=== PATIENT | female | born 1960 | race Caucasian/White ===

== ENCOUNTER → 2017-01-10 | Outpatient (CLI) | payer OTHER ==
[~2017-01-10] MED LIST: GASTROGRAFIN SOLUTION 30ML (Q9963) As Ordered ONE; LIQUID POLIBAR PLUS 105% w/v 1900ML BTL As Ordered ONE
--- NOTE | 2017-01-10 13:20 | REP ---
GASTROGRAFIN ENEMA: The procedure was performed by MILAGRO Coffman under the direct supervision of Dr. Wilde. All imaging was reviewed with Dr. Wilde prior to dictation. The auditor internal film showed no organomegaly or pathological masses. Granulomatous calcifications are seen within the spleen. Gastrografin at a 50/50 dilution with water was infused into the patient's colon via a rectal tip. Imaging during the procedure revealed small diverticula within the sigmoid colon and the distal left colon. Gastrografin was able to be infused all the way through the terminal ileum. The terminal ileum was visualized and appeared normal. The appendix was also visualized on this exam and appeared within normal limits. IMPRESSION: Small sigmoid and left colon diverticula. Other than that unremarkable Gastrografin enema examination. Fluoroscopy time was 1 minute and 2 seconds. Reviewed by MILAGRO Funes 01/10/2017 03:48 PEdited and Signed by Nelson Wilde MD 01/10/2017 06:46 P
== END ==
LOC: M RAD 10:52
PROVIDERS: ATTEND Surgery
DX: R10.84 Generalized abdominal pain (principal); R93.3 Abnormal findings on diagnostic imaging of other parts of digestive tract; K57.30 Diverticulosis of large intestine without perforation or abscess without bleeding
CPT/HCPCS: 74270; Q9963

== ENCOUNTER → 2018-03-17 | Outpatient (REF) | payer OTHER ==
[2018-03-22 14:49] LABS: HPV HYBRID CAPTURE II Negative (Negative)
== END ==
LOC: M SFHCWAGY 15:56
DX: Z12.4 Encounter for screening for malignant neoplasm of cervix (principal); N95.2 Postmenopausal atrophic vaginitis
CPT/HCPCS: G0123

== ENCOUNTER 2019-03-30 06:58 | Day surgery (SDC) | payer OTHER ==
[~2019-03-30] VITALS: Ht 160 cm; Wt 110.7 kg
[~2019-03-30 06:58] MED LIST changes: +BACITRACIN PWD 50,000 UNITS VIAL As Ordered ONE; +BUPIVACAINE HCL 0.5% 10 ML VIAL As Ordered ONE; -GASTROGRAFIN SOLUTION 30ML (Q9963) As Ordered ONE; +LIDOCAINE 2% MDV 20 ML VIAL As Ordered ONE; -LIQUID POLIBAR PLUS 105% w/v 1900ML BTL As Ordered ONE; +MIRA3350 PO; +NEOSPORIN GU IRRIG 20 ML VIAL As Ordered ONE; +SYNT112T2 PO; +TRAM1CAP15 PO; +VITA500045 PO; +dexameTHASONE 4 MG/ML 1ML VIAL (J1100) As Ordered ONE
[2019-03-30] MEDS ORDERED: ceFAZolin SOD 2 GM in IV 1 EA IV ONE (07:00)
[2019-03-30] MEDS ORDERED: LR 1,000 ML IV ONE (07:00)
[2019-03-30] MEDS ORDERED: LIDOCAINE 2% INJ 100 MG/5 ML SDV (FOR ANES.) As Ordered ONE (07:56)
[2019-03-30] MEDS ORDERED: MIDAZOLAM INJ 2 MG/2 ML VIAL (J2250) As Ordered ONE (07:56)
[2019-03-30] MEDS ORDERED: fentaNYL 100 MCG/2 ML INJECTION (J3010) As Ordered ONE (07:56)
[2019-03-30] MEDS ORDERED: PROPOFOL 200 MG/20 ML VIAL As Ordered ONE (07:56)
[2019-03-30] MEDS ORDERED: ONDANSETRON 4MG/2ML VIAL (J2405) As Ordered ONE ×2 (07:56→13:32)
[2019-03-30] MEDS ORDERED: ROCURONIUM BROMIDE 50 MG/5 ML VIAL As Ordered ONE (08:28)
[2019-03-30] MEDS ORDERED: dexameTHASONE 4 MG/ML 1ML VIAL (J1100) As Ordered ONE (08:41)
[2019-03-30] MEDS ORDERED: ACETAMINOPHEN 1000MG 100ML IV BTL (OFIRMEV) (J0131 PER 10MG) As Ordered ONE (08:50)
[2019-03-30] MEDS ORDERED: HYDROmorphone HCL 2 MG/ML 1ML VIAL (J1170) As Ordered ONE (08:56)
[2019-03-30] MEDS ORDERED: SUGAMMADEX SODIUM 500 MG/5 ML VIAL (BRIDION) As Ordered ONE (08:58)
[2019-03-30] MEDS ORDERED: KETOROLAC 60 MG/2 ML VIAL (J1885) As Ordered ONE (09:00)
--- NOTE | 2019-03-30 10:43 | REP ---
Calcaneus: Four views. Intraoperative imaging. History: Calcaneal osteotomy. 8 seconds of fluoroscopy time is reported. Findings: A sequence of four last image hold fluoroscopically obtained spot radiographs document calcaneal osteotomy and screw plate fixation. There are heel spurs. No laterality markers are visible. Electronically Signed by Nelson Wilde MD 03/30/2019 10:36 A
[2019-03-30] MEDS ORDERED: fentaNYL 100 MCG/2 ML INJECTION (J3010) IV PRN (12:00)
[2019-03-30] MEDS ORDERED: oxyCODONE 5MG TAB PO PRN (12:00)
[2019-03-30] MEDS ORDERED: ONDANSETRON 4MG/2ML VIAL (J2405) IV PRN (12:00)
[2019-03-30] MEDS ORDERED: LR 1,000 ML IV SCH (12:00)
--- NOTE | 2019-03-30 12:29 | REP ---
RIGHT FOOT SERIES: FOUR VIEWS. HISTORY: Postop. FINDINGS: Four views of the right foot through overlying splint and dressing material demonstrate calcaneal osteotomy with laterally affixed screw-plate device. Achilles and plantar calcaneal spurring is noted. There is some diffuse osteopenia. There appear to be catheter-like densities medially and laterally suggesting surgical drains at the operative site. Electronically Signed by Nelson Wilde MD 03/30/2019 12:38 P
--- NOTE | 2019-03-30 12:41 | RO ---
DATE OF PROCEDURE: 03/30/2019 PREPROCEDURE DIAGNOSIS: Posterior tibial tendon dysfunction, right foot. POSTPROCEDURE DIAGNOSIS: Posterior tibial tendon dysfunction, right foot. PROCEDURES PERFORMED: 1. Repair of posterior tibial tendon with tenolysis of the right foot. 2. Flexor digitorum and longus tendon transfer to the navicular with a 5.5 x 15 mm biocomposite interference screw. 3. Medial calcaneal osteotomy with plate fixation, Arthrex 7.5 mm plate with locking and nonlocking screws, 3.5 x 26 and 28 locking and a 3.5 cortical 28 times two and a 4.0 compression screw measuring 24 mm. DRAINS: TLS drain. SURGEON: Dr. Logan Walker INSTRUMENT REPAIR SPECIALIST: None. ANESTHESIA: General. ESTIMATED BLOOD LOSS: Less than 10 mL. HEMOSTASIS: Thigh pneumatic tourniquet at 200 mmHg for 108 minutes. DESCRIPTION OF PROCEDURE: On 03/30/2019, this 59-year-old female was taken from her hospital room to the operating room and placed on the operating room table in the supine position. Following induction of IV sedation and local and regional anesthesia, the right lower extremity was prepped and draped in the usual septic manner. Sterile draping was completed and the following procedure was performed: REPAIR OF POSTERIOR TIBIAL TENDON, RIGHT FOOT: Attention was directed to the patient's right foot where an incision was made 2 cm superior to the medial malleolus and extending inferior to the navicular in an S shaped fashion. The incision was deepened through the subcutaneous tissues and all coursing venous tributaries were identified, underscored, clamped, cut, ligated and electrocoagulated as necessary. An incision was made from the flexor retinaculum to the navicular, opening the posterior tibial tendon sheath. Synovium was removed. The tendon was flipped on the deep side utilizing a sterile tongue blade, revealing a 6 cm tear. The tendon had good muscle reaction with tractioning of the tendon and therefore it was elected to copiously lavaged with dilute Bacitracin, Neomycin, and polymyxin B solution. Utilizing a continuous running 4.0 FiberWire suture, the tendon was repaired. Dissection was then carried down to the level of the flexor digitorum longus tendon sheath, which was then traced in a distal direction and just proximal to the Master Knot of [place] several large venous structures were identified and they were clamped, cut and tied. Dissection was carried to the Master Knot of [place] where the tendon was transected. Utilizing fluoroscopy, a guidewire was placed into the navicular in good position and a 5.5 drill hole was then made. The flexor digitorum longus tendon was then placed under tension and approximately 18 mm was marked at the drill hole. Any additional tendon left was then debrided away approximately 8 mm. It was then clasped in a standard fashion and utilizing a 5.5 x 15 mm interference screw, the tendon was placed into the drill socket and tightened. This was then overtied. Good compression was noted of the tendon. The wound was flushed with copious amounts of dilute bacitracin, neomycin, and polymyxin B solution. Closure will be obtained later in the procedure with the tourniquet down to ensure all bleeders were identified. The patient was then positioned onto the lateral surface of the foot, and approximately a 5 cm incision was placed on the lateral side of the calcaneus, approximately 2 inches posterior to the fibula and at approximately 45 degree angle to the foot. Dissection was carried down to the lateral wall. The sural nerve, as encountered, was placed in an anterior direction and protected. Dissection was carried posterior to the peroneal tendons utilizing BB tacks as a guide, fluoroscopy was utilized to ensure proper position of the osteotomy. It was found to be in a good position, slightly more anterior than normally placed due to a large infracalcaneal spur. The calcaneus was then cut with a sagittal saw. Utilizing a 7.5 mm plate, the plate was fixated with the more proximal screws first, two locking screws, 3.5 x 26 and 28 were then placed, and then a 4.0 cancellus screw was used to compress the plate. Good position and location was noted. Two cortical screws were then placed distally across the osteotomy site. Intraoperative C-Arm imagery was used to verify good position. The wound was flushed with copious amounts of dilute bacitracin, neomycin, and polymyxin B solution. A TLS drain was then placed in the wound and sutured in. The periosteum was coapted and maintained with 2-0 Monocryl in a simple, interrupted type fashion. Subcutaneous tissue coapted and maintained utilizing 4-0 Monocryl in a simple, interrupted type fashion. Skin incision coapted and maintained utilizing 4-0 Prolene in a simple, interrupted and horizontal mattress type fashion. Tourniquet was then released. The patient was then repositioned in the supine position. Gelfoam was used at the Master Knot of Kemal. No additional bleeding was noted and the wound was closed with the ligament and tendon sheath repaired with 2-0 Monocryl. Subcutaneous tissues were coapted and maintained with 4-0 Monocryl and the skin was coapted and maintained with 4-0 Prolene in a simple, interrupted and horizontal mattress type fashion over a TLS drain. Bandage was applied consisting of Adaptic, 4 x 4's, and then a Vela compressive dressing with an anterior splint was placed. TLS drain was functioning satisfactorily. The patient, having apparently tolerated the surgical procedure well, was taken from the operating room to the recovery room, for further monitoring by the anesthesia department.
[2019-03-30 13:40] VITALS: BP 146/71
== END 2019-03-30 14:46 | disposition home or self-care (01) ==
LOC: M SDC 06:58
PROVIDERS: ATTEND Podiatrist
DX: M66.371 Spontaneous rupture of flexor tendons, right ankle and foot (principal); M79.671 Pain in right foot; M76.821 Posterior tibial tendinitis, right leg; E03.9 Hypothyroidism, unspecified; G47.30 Sleep apnea, unspecified; Z79.899 Other long term (current) drug therapy
CPT/HCPCS: 27680; 27691; 28300; 73630; 76000; C1713; C1781; J0131; J0690; J1100; J1170; J1885; J2250; J2405; J3010

== ENCOUNTER → 2020-03-25 | Outpatient (REF) | payer OTHER ==
[~2020-03-25] MED LIST changes: -BACITRACIN PWD 50,000 UNITS VIAL As Ordered ONE; -BUPIVACAINE HCL 0.5% 10 ML VIAL As Ordered ONE; -LIDOCAINE 2% MDV 20 ML VIAL As Ordered ONE; -NEOSPORIN GU IRRIG 20 ML VIAL As Ordered ONE; -dexameTHASONE 4 MG/ML 1ML VIAL (J1100) As Ordered ONE
[2020-03-25 13:10] LABS: PERCENT SATURATION 17.5 % (13.2-45.0)
[2020-03-25 13:13] LABS: HEMATOCRIT 40.5 % (36.0-47.0)
== END ==
LOC: M LAB REF 12:31
PROVIDERS: ATTEND Nurse Practitioner Adult Health
DX: R71.8 Other abnormality of red blood cells (principal)

== ENCOUNTER → 2020-08-31 | Outpatient (CLI) | payer OTHER | LOC: M LABSMTC 10:05 | PROVIDERS: ATTEND Anesthesiology | DX: Z01.818 Encounter for other preprocedural examination (principal); Z11.52 Encounter for screening for COVID-19 ==

== ENCOUNTER 2020-09-05 10:49 | Day surgery (SDC) | payer OTHER ==
[~2020-09-05] VITALS: Ht 160 cm; Wt 108.4 kg
[~2020-09-05 10:49] MED LIST changes: +LIDOCAINE 2% 100MG/5ML SDV (FOR ANES.) As Ordered ONE; +NS 1,000 ML IV ONE; +VITA50005 PO; +propofoL 200 MG/20 ML VIAL As Ordered ONE
--- NOTE | 2020-09-05 12:49 | ROOR ---
Patient Name: Angi Goetz Procedure Date: 09/05/2020 11:53 AM Date of : 1960 Age: 60 Room: [facility] Gender: Female Note Status: Finalized Procedure: Upper GI endoscopy Indications: Family history of gastric cancer Providers: Ronak Almanzar MD Referring MD: Gisele Lam NP Requesting Provider: Medicines: Monitored Anesthesia Care Complications: No immediate complications. Procedure: Pre-Anesthesia Assessment: - Prior to the procedure, a History and Physical was performed, and patient medications and allergies were reviewed. The patient is competent. The risks and benefits of the procedure and the sedation options and risks were discussed with the patient. All questions were answered and informed consent was obtained. Patient identification and proposed procedure were verified by the physician, the nurse and the anesthesiologist in the procedure room. Mental Status Examination: alert and oriented. Airway Examination: normal oropharyngeal airway and neck mobility. Respiratory Examination: clear to auscultation. CV Examination: normal. Prophylactic Antibiotics: The patient does not require prophylactic antibiotics. Prior Anticoagulants: The patient has taken no previous anticoagulant or antiplatelet agents. ASA Grade Assessment: II - A patient with mild systemic disease. After reviewing the risks and benefits, the patient was deemed in satisfactory condition to undergo the procedure. The anesthesia plan was to use monitored anesthesia care (MAC). Immediately prior to administration of medications, the patient was re-assessed for adequacy to receive sedatives. The heart rate, respiratory rate, oxygen saturations, blood pressure, adequacy of pulmonary ventilation, and response to care were monitored throughout the procedure. The physical status of the patient was re-assessed after the procedure. The Endoscope was introduced through the mouth, and advanced to the second part of duodenum. The upper GI endoscopy was accomplished without difficulty. The patient tolerated the procedure well. Findings: The examined esophagus was normal. The Z-line was regular and was found 37 cm from the incisors. Scattered moderate inflammation characterized by congestion (edema), erythema and granularity was found in the gastric body and in the gastric antrum. Five biopsies were obtained with cold forceps for histology in the gastric antrum, as well as four biopsies in the gastric body. Verification of patient identification for the specimen was done by the physician and nurse using the patient's name, date and medical record number. Estimated blood loss was minimal. The duodenal bulb and second portion of the duodenum were normal. Impression: - Normal esophagus. - Z-line regular, 37 cm from the incisors. - Gastritis. - Normal duodenal bulb and second portion of the duodenum. - Biopsies performed in the gastric antrum and in the gastric body. Recommendation: - Patient has a contact number available for emergencies. The signs and symptoms of potential delayed complications were discussed with the patient. Return to normal activities tomorrow. Written discharge instructions were provided to the patient. - High fiber diet. - Continue present medications. - Await pathology results. - Telephone GI clinic for pathology results in 2 weeks. - Follow an antireflux regimen. - Return to primary care physician. Procedure Code(s): --- Professional --- 70190, Esophagogastroduodenoscopy, flexible, transoral; with biopsy, single or multiple Diagnosis Code(s): --- Professional --- K29.70, Gastritis, unspecified, without bleeding Z80.0, Family history of malignant neoplasm of digestive organs CPT copyright 2019 [employer]. All rights reserved. The codes documented in this report are preliminary and upon template storage clerk review may be revised to meet current compliance requirements. Ronak Almanzar MD Ronak Almanzar MD 09/05/2020 12:48:51 PM Electronically signed by Ronak Almanzar MD Number of Addenda: 0 Note Initiated On: 09/05/2020 11:53 AM Estimated Blood Loss: Estimated blood loss: none.
--- NOTE | 2020-09-05 13:00 | ROOR ---
Patient Name: Angi Goetz Procedure Date: 09/05/2020 11:53 AM Date of : 1960 Age: 60 Room: [facility] Gender: Female Note Status: Finalized Procedure: Colonoscopy Indications: Positive Cologuard test Providers: Ronak Almanzar MD Referring MD: Gisele Lam NP Requesting Provider: Medicines: Monitored Anesthesia Care Complications: No immediate complications. Procedure: Pre-Anesthesia Assessment: - Prior to the procedure, a History and Physical was performed, and patient medications and allergies were reviewed. The patient is competent. The risks and benefits of the procedure and the sedation options and risks were discussed with the patient. All questions were answered and informed consent was obtained. Patient identification and proposed procedure were verified by the physician, the nurse and the anesthesiologist in the procedure room. Mental Status Examination: alert and oriented. Airway Examination: normal oropharyngeal airway and neck mobility. Respiratory Examination: clear to auscultation. CV Examination: normal. Prophylactic Antibiotics: The patient does not require prophylactic antibiotics. Prior Anticoagulants: The patient has taken no previous anticoagulant or antiplatelet agents. ASA Grade Assessment: II - A patient with mild systemic disease. After reviewing the risks and benefits, the patient was deemed in satisfactory condition to undergo the procedure. The anesthesia plan was to use monitored anesthesia care (MAC). Immediately prior to administration of medications, the patient was re-assessed for adequacy to receive sedatives. The heart rate, respiratory rate, oxygen saturations, blood pressure, adequacy of pulmonary ventilation, and response to care were monitored throughout the procedure. The physical status of the patient was re-assessed after the procedure. The Colonoscope was introduced through the anus and advanced to the terminal ileum, with identification of the appendiceal orifice and IC valve. The colonoscopy was performed without difficulty. The patient tolerated the procedure well. The quality of the bowel preparation was good. The terminal ileum, ileocecal valve, appendiceal orifice, and rectum were photographed. Scope insertion time was 2 minutes. Scope withdrawal time was 10 minutes. The total duration of the procedure was 12 minutes. Findings: The perianal and digital rectal examinations were normal. The terminal ileum appeared normal. Five sessile polyps were found in the sigmoid colon, descending colon, transverse colon and ascending colon. The polyps were 3 to 6 mm in size. These polyps were removed with a cold snare. Resection and retrieval were complete. Verification of patient identification for the specimen was done by the physician and nurse using the patient's name, date and medical record number. Estimated blood loss was minimal. Multiple small and large-mouthed diverticula were found from sigmoid to descending colon. There was no evidence of diverticular bleeding. Non-bleeding external and internal hemorrhoids were found during retroflexion. The hemorrhoids were medium-sized. Impression: - The examined portion of the ileum was normal. - Five 3 to 6 mm polyps in the sigmoid colon, in the descending colon, in the transverse colon and in the ascending colon, removed with a cold snare. Resected and retrieved. - Moderate diverticulosis from sigmoid to descending colon. There was no evidence of diverticular bleeding. - Non-bleeding external and internal hemorrhoids. Recommendation: - Patient has a contact number available for emergencies. The signs and symptoms of potential delayed complications were discussed with the patient. Return to normal activities tomorrow. Written discharge instructions were provided to the patient. - High fiber diet. - Continue present medications. - Await pathology results. - Repeat colonoscopy in 3 years for surveillance based on pathology results. - Telephone GI clinic for pathology results in 2 weeks. - Use fiber, for example Citrucel, Fibercon, Konsyl or Metamucil. - Return to primary care physician. Procedure Code(s): --- Professional --- 57861, Colonoscopy, flexible; with removal of tumor(s), polyp(s), or other lesion(s) by snare technique Diagnosis Code(s): --- Professional --- K64.8, Other hemorrhoids K63.5, Polyp of colon R19.5, Other fecal abnormalities K57.30, Diverticulosis of large intestine without perforation or abscess without bleeding CPT copyright 2019 [employer]. All rights reserved. The codes documented in this report are preliminary and upon retail wireless associate review may be revised to meet current compliance requirements. Ronak Almanzar MD Ronak Almanzar MD 09/05/2020 1:00:28 PM Electronically signed by Ronak Almanzar MD Number of Addenda: 0 Note Initiated On: 09/05/2020 11:53 AM Estimated Blood Loss: Estimated blood loss was minimal.
[2020-09-05 13:05] VITALS: BP 125/62
== END 2020-09-05 13:17 | disposition home or self-care (01) ==
LOC: M OPP 10:49
PROVIDERS: ATTEND Internal Medicine Gastroenterology
DX: D12.6 Benign neoplasm of colon, unspecified (principal); K57.30 Diverticulosis of large intestine without perforation or abscess without bleeding; K64.8 Other hemorrhoids; R19.5 Other fecal abnormalities; K29.70 Gastritis, unspecified, without bleeding; Z80.0 Family history of malignant neoplasm of digestive organs; Z79.899 Other long term (current) drug therapy

== ENCOUNTER → 2020-12-02 | Outpatient (CLI) | payer OTHER ==
[~2020-12-02] MED LIST changes: +ERGO500029 PO; -LIDOCAINE 2% 100MG/5ML SDV (FOR ANES.) As Ordered ONE; -NS 1,000 ML IV ONE; -VITA50005 PO; -propofoL 200 MG/20 ML VIAL As Ordered ONE
--- NOTE | 2020-12-02 13:42 | REP ---
INDICATION: PAIN. COMPARISON: None. TECHNIQUE: Five views of the left knee are provided. FINDINGS: Five views of the 5 left knee demonstrate moderate 3 compartment osteoarthritis with patellofemoral and lateral compartment joint space narrowing and 3 compartment spurring. There is fullness in the suprapatellar bursa region consistent with a small joint effusion. There is a normal fabella. No erosive changes seen. There is some sclerosis in the lateral tibial plateau.. No fracture or subluxation is seen. No opaque foreign body noted. IMPRESSION: Moderate 3 compartment osteoarthritis of the left knee. Probable small joint effusion.. <Electronically signed by Keshav Wilde > 12/02/20 [id number]
== END ==
LOC: M WUC 11:21
PROVIDERS: ATTEND Nurse Practitioner Adult Health
DX: M17.12 Unilateral primary osteoarthritis, left knee (principal)

== ENCOUNTER → 2021-04-02 | Outpatient (REF) | payer OTHER | LOC: M SFHCWAGY 12:59 | PROVIDERS: ATTEND Nurse Practitioner Women's Health | DX: Z12.4 Encounter for screening for malignant neoplasm of cervix (principal) ==

== ENCOUNTER → 2021-04-02 | Outpatient (REF) | payer OTHER | LOC: M PLALAB 07:04 | PROVIDERS: ATTEND Nurse Practitioner Women's Health | DX: Z12.4 Encounter for screening for malignant neoplasm of cervix (principal) ==

== ENCOUNTER → 2022-11-02 | Outpatient (REF) | payer OTHER ==
[2022-11-02 17:36] LABS: RHEUMATOID FACTOR QUANT < 3.5 IU/ML (<14)
[2022-11-02 20:59] LABS: HEPATITIS B SURFACE ANTIGEN NEGATIVE (NEGATIVE)
[2022-11-02 21:21] LABS: HEPATITIS C VIRUS ABY INDEX 0.09 INDEX (<0.8)
[2022-11-02 21:22] LABS: HEPATITIS B CORE ANTIBODY IGM NEGATIVE (NEGATIVE)
[2022-11-04 21:08] LABS: ANTINUCLEAR ANTIBODIES DIRECT Negative (Negative); CYCLIC CITRULLINATED PEPTIDE 4 units (0-19)
== END ==
LOC: M LAB REF 16:43
PROVIDERS: ATTEND Nurse Practitioner Adult Health
DX: M25.50 Pain in unspecified joint (principal)

== ENCOUNTER → 2022-11-02 | Outpatient (CLI) | payer OTHER | LOC: M WUC 15:46 | PROVIDERS: ATTEND Nurse Practitioner Adult Health | DX: M19.90 Unspecified osteoarthritis, unspecified site (principal) ==

== ENCOUNTER → 2024-08-16 | Outpatient (CLI) | payer OTHER | LOC: M WUC 15:10 | PROVIDERS: ATTEND Nurse Practitioner Adult Health | DX: M17.11 Unilateral primary osteoarthritis, right knee (principal) ==